=== PATIENT | female | born 1960 | race Caucasian/White ===

== ENCOUNTER → 2019-10-10 | Outpatient (CLI) | payer OTHER | LOC: SJCVCIMAG 08:06 | PROVIDERS: ATTEND Internal Medicine Cardiovascular Disease | DX: I25.89 Other forms of chronic ischemic heart disease (principal); I49.3 Ventricular premature depolarization; J44.9 Chronic obstructive pulmonary disease, unspecified; I10 Essential (primary) hypertension; E78.5 Hyperlipidemia, unspecified; F17.200 Nicotine dependence, unspecified, uncomplicated; Z79.899 Other long term (current) drug therapy ==

== ENCOUNTER → 2019-11-25 | Outpatient (CLI) | payer OTHER ==
[~2019-11-25] VITALS: Ht 170.2 cm; Wt 86.2 kg
[~2019-11-25] MED LIST: ASA81BEC PO; COZAAR 25 MG TA25 M1 PO; METROGEL-VAGINA70 GM TOP; OMEPRAZOLE 20 M20 M1 PO; TOPROL XL25 MG PO
[2019-11-25 09:23] VITALS: BP 136/100
[2019-11-25 09:42] LABS: HEMATOCRIT 44.7 % (37.0-47.0); HEMOGLOBIN 15.7 gm/dL (12.0-15.0); MCH 30.4 pg (26.0-34.0); MCHC 35.2 g/dL (28.0-37.0); MCV 86.4 fL (80.0-100.0); RBC 5.18 mil/uL (4.20-5.00); WBC 7.2 thou/uL (4.0-11.0)
[2019-11-25 09:59] LABS: CREATININE 1.1 mg/dL (0.6-1.0); POTASSIUM 4.1 mmol/L (3.5-5.1)
--- NOTE | 2019-11-25 13:40 | CATHLAB ---
[facility] [place] [address] INVASIVE PROCEDURE REPORT Name: DONNELL BOUDREAUX Room #: REG NAVIN Rachael.#: [id number] Admission: 11/25/19 Attend Phys: Jasbir Campbell MD Discharge: Date of : 60 Report #: [id number] THIS REPORT FOR: cc: Mason Scales Louis D. DO Park, Jin S. MD ~ APPROVED REPORT Study performed: 11/25/2019 10:17:04 Patient Details Patient Status: Out-Patient Room #: The patient is a 59 year-old female Event Personnel Jasbir Campblel Outsole Compressor, Tianna Cho RN RN, Lisa Lazo RN RN, Michelle Leija Monitor, Sania Soto RTR, EDEN Scrub, Rudy Garg RTR Scrub Procedures Performed Art Access - R femoral artery* Left Heart Cath w/or w/o Coronaries [id number] [facility] Hemostasis with Manual pressure 01550 Initial Mod Sed Same Phys/QHP Gr5y [id number] 81629 Mod Sed Same Phys/QHP Ea [id number] Indication Arrhythmia, Positive stress test Risk Factors Hypercholesterolemia, Hypertension Procedure Narrative The Right Groin^ was infiltrated with 1% Lidocaine subcutaneous anesthesia. A PINNACLE 4FR Sheath #[id number] sheath was inserted into the RFA 4F^. Coronary angiography was performed using coronary diagnostic catheters. The right coronary system was accessed and visualized with a JR4 catheter. The left coronary system was accessed and visualized with a JL4 catheter. The left ventricle was accessed and visualized with a ANGLE PIG catheter. Left ventriculogram was performed in 30 degree projection. Hemostasis was obtained with manual pressure following sheath removal without any complications. Intraoperative Conscious Sedation [facility] [address] [place] [address] INVASIVE PROCEDURE REPORT Name: DONNELL BOUDREAUX Room #: REG [facility]#: [id number] Admission: 11/25/19 Attend Phys: Jasbir Campbell MD Discharge: Date of : 60 Report #: [id number] Sedation start time: 1029 Case end Time: 1100 Fentanyl 50 mcg Versed 1 mg Fluoro Time: 4.20 minutes Dose: DAP 4297.00 cGycm2 1161 mGy Contrast Type and Amount: Visipaque 65 ml Coronary Angiography The patient's coronary anatomy is co- dominant. Diagnostic Cath Left Main Left main artery is a large-caliber vessel, patent with no flow-limiting lesions. LAD The LAD is a moderate-sized caliber vessel, traversing the anterior wall and wrapping around the apex. There is minimal plaquing in the mid segment of the LAD. Diagonal 1 This is a moderate-sized caliber vessel, patent with no flow-limiting lesions. Circumflex Left circumflex artery is a codominant vessel, patent with no flow-limiting lesions. OM1 This is a moderate-sized caliber vessel, patent with no flow-limiting lesions. OM2 This is a moderate-sized caliber vessel, patent with no flow-limiting lesions. OM3 This is a small caliber vessel, with no flow-limiting lesions. Right Coronary There is minimal plaquing noted in the midsegment of the RCA. R PDA This is a small caliber vessel, with no flow-limiting lesions. Left Ventriculography Left Ventriculography was not performed. Ejection Fraction was 55-60% based off patient's Nuclear Cardiac Stress Test. An LVEDP was measured and there is no gradient across the outflow tract. Hemodynamics The aortic pressure is 163/55 mmHg with a mean of 60 mmHg. The left ventricular pressure is 193/14 mmHg with a mean of mmHg. The left ventricular end diastolic pressure is 21 mmHg. Conclusion 1. There is minimal plaquing noted in the mid LAD and mid RCA segments. [facility] [address] [place] [address] INVASIVE PROCEDURE REPORT Name: DONNELL BOUDREAUX Room #: REG CL [facility]#: [id number] Admission: 11/25/19 Attend Phys: Jasbir Campbell MD Discharge: Date of : 60 Report #: [id number] 2. This is a codominant system. 3. There is normal LV systolic function. 4. Recommend guideline directed medical therapy. <ELECTRONICALLY SIGNED> By: Jasbir Campbell MD 11/25/191339 39 39 Jasbir Campbell MD /INF
== END | disposition home or self-care (01) ==
LOC: CATH 08:23
PROVIDERS: ATTEND Internal Medicine Cardiovascular Disease
DX: R94.39 Abnormal result of other cardiovascular function study (principal); I25.10 Atherosclerotic heart disease of native coronary artery without angina pectoris; I10 Essential (primary) hypertension; I49.9 Cardiac arrhythmia, unspecified; E78.1 Pure hyperglyceridemia; E78.5 Hyperlipidemia, unspecified; K21.9 Gastro-esophageal reflux disease without esophagitis; E66.09 Other obesity due to excess calories; F17.210 Nicotine dependence, cigarettes, uncomplicated; Z98.890 Other specified postprocedural states; Z79.899 Other long term (current) drug therapy; Z88.2 Allergy status to sulfonamides; Z79.82 Long term (current) use of aspirin